=== PATIENT | male | born 1980 | race Caucasian/White ===

== ENCOUNTER 2022-03-29 00:32 | Emergency (ER) | payer SELFPAY ==
[2022-03-29 00:43] VITALS: BP 109/67; PULSE 83; RESP 18; TEMP 36.6; O2SAT 98
--- NOTE | 2022-03-29 00:46 | ED.SKABFB ---
HPI - Skin/Abscess/Foreign Bdy General Chief complaint: Skin/Abscess/Foreign Body Stated complaint: skin is burning Time Seen by Provider: 03/29/22 00:40 History of Present Illness HPI narrative: 42-year-old male presents to the emergency room via EMS for evaluation of a sunburn. Patient states that he is currently homeless, and [place]. Patient states that he has been without a shirt the past couple of days, because the shirt causes increased pain and pruritus. Patient has a history of schizophrenia, stating that he has been unmedicated for 5 to 6 months. Patient also states that he is currently walking here from [place], because he likes to travel. Patient called EMS because he wanted his sheet to cover up with. Related Data Allergies Allergy/AdvReac Type Severity Reaction Status Date / Time Penicillins Allergy Rash Verified 03/29/22 00:43 Review of Systems Review of Systems: CONSTITUTIONAL: Denies fever, chills, or sweats. EYES: Denies visual changes, redness, or discharge. ENT: Denies rhinorrhea, congestion, sore throat, or otalgia. CARDIOVASCULAR: Denies chest pain, palpitations, or edema. RESPIRATORY: Denies cough or dyspnea. GASTROINTESTINAL: Denies abdominal pain, nausea, vomiting, or diarrhea. GENITOURINARY: Denies dysuria or hematuria. SKIN: Reports sunburn to chest and back MUSCULOSKELETAL: Denies back pain, joint pain, or myalgia. NEUROLOGIC: Denies headache, numbness, dizziness, or weakness. PSYCHIATRIC: Denies anxiety or depression. [facility] Past Medical History Medical History (Updated 03/29/22 @ 01:41 by Jeremías Doshi, CHLOE) Schizophrenia Exam Narrative: GENERAL: Well-appearing, well-nourished, and in no acute distress. HEAD: Normocephalic, atraumatic. EYES: PERRLA and EOMI. CHEST: Clear to auscultation. No respiratory distress. No wheezes rales or rhonchi HEART: Regular rate and rhythm. No murmur heard. Normal peripheral pulses. ABDOMEN: Soft, nontender, nondistended, normal active bowel sounds. EXTREMITIES: Normal range of motion. No edema. SKIN: Epidermal paulson to the chest, abdomen and back with overlying peeling; no evidence of blistering NEURO: No focal deficits. Alert and oriented x3. PSYCH: Normal mood and affect. Discharge Plan Discharge Clinical Impression: First degree burn Patient Disposition: Home, Self-Care Condition: Stable Instructions: Antibiotic Form Follow-up/Referrals: PHYSICIAN,BURR GRINDER [Primary Care Provider] - Time of Disposition: 01:41
--- NOTE | 2022-03-29 01:13 | PC.NURSE ---
Pt here c ems. Per EMS, pt reported he had spent the last 8 months walking here from [place]. Pt's complaint today is sunburn.
[2022-03-29] MEDS: IBUPROFEN 400 MG TABLET 800 MG PO (01:23)
== END 2022-03-29 01:58 | disposition home or self-care (01) ==
PROVIDERS: Emergency Provider Nurse Practitioner Family
DX: L55.0 Sunburn of first degree (principal); F20.9 Schizophrenia, unspecified
CPT/HCPCS: 99282; A9270